=== PATIENT | male | born 1960 | race Caucasian/White ===

== ENCOUNTER 2019-12-01 05:49 | Day surgery (SDC) | payer SELFPAY ==
[2019-11-29 13:16] LABS: Probe Check PASS; Specimen Processing Control PASS
[2019-12-01] VITALS (8 sets, daily range): BP systolic 100–139; BP diastolic 66–92; PULSE 73–104; RESP 16–18; TEMP 36.2–36.9; O2SAT 90–98; BMI 36.6
[2019-12-01] MEDS: Lactated Ringers 1,000 ML 100 ML IV ×2 (06:36→11:32)
[2019-12-01] MEDS: Cefazolin 2 GM in 0.9% Normal Saline 100 ML IV (07:26)
--- NOTE | 2019-12-01 07:30 | RAD_ITS ---
STUDY: X-RAY - RIGHT ANKLE REASON FOR EXAM: Male, 59 years old. orif w/ syndesmosis. 20 images, 263 sec.fl. TECHNIQUE: 3 view(s) of the ankle. COMPARISON: None. FINDINGS: Intraoperative imaging provided for ORIF of the distal fibular fracture. RAD/Ankle min 3 Views IMPRESSION: Intraoperative imaging provided for ORIF of the distal fibular fracture. Electronically Signed: Arnie Aguilera, at 15:08 EDT , Service support ,
--- NOTE | 2019-12-01 10:24 | RAD_ITS ---
STUDY: X-RAY - RIGHT ANKLE REASON FOR EXAM: Male, 59 years old. S/P ORIF RIGHT ANKLE TECHNIQUE: 4 view(s) of the ankle. COMPARISON: None. FINDINGS: The patient is status post open reduction and fixation of the distal fibula. A rounded metallic density seen overlying the distal tibial metaphysis. Postoperative soft tissue changes. RAD/Ankle min 3 Views IMPRESSION: Status post ORIF of the distal fibula. Postoperative soft tissue changes. Electronically Signed: Arnie Aguilera, at 12:41 EDT , Service support ,
--- NOTE | 2019-12-01 10:27 | DCINST_ITS ---
Discharge Diet: No Restrictions Discharge Activity: May Not Shower, Use Walker, Use Crutches Weight Bearing Status: No weight bearing Keep extremity elevated above heart level: Right Leg Additional Activity Instructions:: 1. Keep dressing to right foot and leg clean, dry, intact. Do not get dressing wet. Do not remove dressing. If get dressing wet, call office for further instruction. It is recommended to sponge bathe at this time. 2. Elevate right foot above the level of heart as often as possible for the next 2 weeks. 3. Ice around right knee 30 minutes on, 30 minutes off, every hour while awake until follow-up appointment. 4. Do not place any weight on right foot. Do not walk or stand on right foot. Use crutches/walker/wheelchair for assistance. 5. Begin taking doxycycline (antibiotic) tomorrow, December 02, 2019, twice a day as instructed. 6. Begin taking aspirin tomorrow, December 02, 2019 as instructed. 7. Begin taking Percocet (pain medication) today, December 01, 2019 as needed. Call your doctor if your incision/area has: Sudden Increased Bleeding, Increased Pain/ Swelling Call your doctor if you observe: Fever of 101 or Higher, Coldness, Increased Pain, Inability to have a bowel movement, Shortness of breath, Increased palpitations (irregular heartbeat), Calf discomfort, Uncontrolled pain Cleanse incision/area with: Keep Dressing Clean & Dry Allergies/Adverse Reactions: Allergies No Known Allergies Allergy (Verified 11/24/19 14:50) Medications to take at Discharge Hydrocodone/Acetaminophen [[place] 5-325 Tablet] 1 - 2 ea PO Q6H PRN 11/24/19 Acetaminophen [Tylenol] 650 mg PO Q8H PRN PRN 12/01/19 Naproxen Sodium [Aleve] 220 mg PO Q4H PRN PRN 12/01/19 Primary Care Physician: Monique Martino MD [Primary Care Provider] - Test Results: Test results from this visit will be discussed in further detail at your follow- up appointment, if applicable. Please Follow Up With: Sanjiv Herron DPM When: As previously scheduled week of December 05, 2019. Proposed Discharge Date: 12/01/19
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
[2019-12-01] MEDS: HYDROcodone Bitartrate/Apap 5/325 Tablet PO (12:44)
== END 2019-12-01 14:07 | disposition home or self-care (01) ==
LOC: SDC 05:50 → AC 05:51
PROVIDERS: Anesthesiology; PCP Family Medicine; Referring Provider Podiatrist Foot & Ankle Surgery; Visit Provider Podiatrist Foot & Ankle Surgery
PROC: (CPT 27822; principal; 2019-12-01 07:10)
DX: S82.851A Displaced trimalleolar fracture of right lower leg, initial encounter for closed fracture (principal); S93.04XA Dislocation of right ankle joint, initial encounter; V19.88XA Pedal cyclist (driver) (passenger) injured in other specified transport accidents, initial encounter; W22.8XXA Striking against or struck by other objects, initial encounter; Y93.55 Activity, bike riding; M21.6X1 Other acquired deformities of right foot; H91.90 Unspecified hearing loss, unspecified ear; E66.9 Obesity, unspecified; Z68.37 Body mass index [BMI] 37.0-37.9, adult; Z20.828 Contact with and (suspected) exposure to other viral communicable diseases
CPT/HCPCS: 27822; 64445; 64447; 76942; 73610; 76000; 87635; 94799; C1713; J7120; J2405; U0003